=== PATIENT | female | born 1945 | race Caucasian/White ===

== ENCOUNTER 2020-06-28 17:59 | Emergency (ER) | payer MEDICARE, OTHER ==
[2020-06-28] MEDS ORDERED: Metoclopramide 10 MG/2 ML SDV IVPUSH ONE (18:35)
[2020-06-28] MEDS ORDERED: Sodium Chloride 0.9% 10 ML Syringe FLUSH PRN (18:35)
[2020-06-28] MEDS ORDERED: HYDROmorphone 0.5 MG/0.5 ML Syringe IVPUSH ONE (18:35)
[2020-06-28] MEDS ORDERED: Sodium Chloride 0.9% 1,000 ML IV ONE (18:35)
[2020-06-28] MEDS ORDERED: diphenhydrAMINE 50 MG/ML SDV IVPUSH ONE (18:36)
--- NOTE | 2020-06-28 18:49 | EDM.PDOC ---
ED HPI GENERAL MEDICAL PROBLEM - General Chief Complaint: Headache Stated Complaint: HEADACHE/BLURRED VISION/L SIDE NUMBNESS Time Seen by Provider: 06/28/20 18:25 Source of Information: Reports: Patient, RN Notes Reviewed History Limitations: Reports: No Limitations - History of Present Illness INITIAL COMMENTS - FREE TEXT/NARRATIVE: Patient is a 75-year-old female who presents to the ED for evaluation of a severe headache. Patient states she got her COVID-19 vaccine, the first dose on June 17.. She has been having a frontal headache, into the left side of her head, and into the back of her head since yesterday. She has been using 600 mg of Motrin as needed, her last dose was around 4:30 PM today. She is complaining of some left eye blurry vision, and that the left side of her face feels somewhat numb or tingly. She has no neuro deficits apparent. She is moving all limbs equally and bilaterally. She is also complaining of some chest tightness, like she was wearing her bra, but in fact she is not wearing a bra. She does not take any sort of aspirin. Patient states she does have some pressure in her head and her ears hurt as well. She is not been around anyone has been sick, and has not taken any unnecessary outings after getting her first Covid vaccine. She denies any fevers or chills, cough or shortness of breath, vomiting or diarrhea. She felt a little bit nauseous earlier today when the pain was quite bad. She also notes that the pain is around a 10 out of 10. She further denies any urinary issues. Primary care provider is Sarahy Zhong. Other Treatments O[employer]ER BLASTING: motrin Headache Pain Score (Numeric/FACES): 10 - Related Data Allergies Allergy/AdvReac Type Severity Reaction Status Date / Time No Known Allergies Allergy Verified 06/28/20 18:16 Home Meds: Home Meds Cefdinir [Omnicef] 300 mg PO BID 10 Days #20 cap 06/28/20 [Rx] Gabapentin [Neurontin] 100 mg PO DAILY 06/28/20 [History] Levothyroxine [Synthroid] 50 mcg PO DAILY 06/28/20 [History] Simvastatin 20 mg PO BEDTIME 06/28/20 [History] amLODIPine [Norvasc] 5 mg PO DAILY 06/28/20 [History] lisinopriL [Lisinopril] 20 mg PO DAILY 06/28/20 [History] metFORMIN [Glucophage XR] 500 mg PO BEDTIME 06/28/20 [History] Past Medical History Cardiovascular History: Reports: Hypertension Musculoskeletal History: Reports: Arthritis Neurological History: Reports: Migraines Endocrine/Metabolic History: Reports: Diabetes, Type II, Hypothyroidism Social & Family History - Tobacco Use Tobacco Use Status *Q: Never Tobacco User - Caffeine Use Caffeine Use: Reports: Coffee - Recreational Drug Use Recreational Drug Use: No ED ROS GENERAL - Review of Systems Review Of Systems: Comprehensive ROS is negative, except as noted in HPI. - Physical Exam Exam: See Below Exam Limited By: No Limitations General Appearance: Alert, WD/WN, No Apparent Distress Eye Exam: Bilateral Eye: EOMI, Normal Inspection, PERRL Head Exam: Atraumatic, Normocephalic Neck: Normal Inspection Respiratory/Chest: No Respiratory Distress, Lungs Clear, Normal Breath Sounds, No Accessory Muscle Use, Chest Non-Tender Cardiovascular: Normal Peripheral Pulses, Regular Rate, Rhythm, No Edema GI/Abdominal: Normal Bowel Sounds, Soft, Non-Tender, No Distention, No Mass Neuro Exam (Abbreviated): Alert, Oriented, Normal Cognition, No Motor/Sensory Deficits Extremities: Normal Inspection, Normal Capillary Refill Psychiatric: Normal Affect, Normal Mood Skin Exam: Warm, Dry, Intact, Normal Color, No Rash #1 Interpretation EKG Date: 06/28/20 Time: 18:42 Rhythm: NSR Rate (Beats/Min): 75 [place]: Normal P-Wave: Present QRS: Normal ST-T: Normal QT: Normal Comparison: NA - No Prior EKG EKG Interpretation Comments: No obvious ischemia or acute ST changes noted, reviewed by myself and Dr. Wilkinson. Course - Vital Signs Last Recorded V/S: Last Vital Signs Temp 99.8 F 06/28/20 18:21 Pulse 81 06/28/20 18:21 Resp 20 06/28/20 18:21 BP 171/63 H 06/28/20 18:21 Pulse Ox 100 06/28/20 18:21 - Orders/Labs/Meds Orders: Active Orders 24 hr Category Date Time Status EKG 12 Lead [EKG Documentation Completion] [RC] STAT Care 06/28/20 18:30 Active Peripheral IV Care [RC] . DIRECTED Care 06/28/20 18:35 Ordered Chest 1V Frontal [CR] Stat Exams 06/28/20 18:34 Ordered Head wo Cont [CT] Stat Exams 06/28/20 18:32 Ordered CULTURE URINE [RM] Routine Lab 06/28/20 20:37 Ordered Sodium Chloride 0.9% [Saline Flush] Med 06/28/20 18:35 Ordered 10 ml FLUSH ASDIRECTED PRN Peripheral IV Insertion Adult [OM.PC] Routine Oth 06/28/20 18:34 Ordered Medication Orders Sodium Chloride (Saline Flush) 10 ml FLUSH ASDIRECTED PRN PRN Reason: Keep Vein Open Last Admin: 06/28/20 19:16 Dose: 10 ml Documented by: PEARL Labs: Laboratory Tests 06/28/20 06/28/20 06/28/20 Range/Units 19:10 19:10 19:23 WBC 8.22 (3.98-10.04) K/mm3 RBC 3.92 L (3.98-5.22) M/mm3 Hgb 10.9 L (11.2-15.7) gm/dl Hct 34.2 (34.1-44.9) % MCV 87.2 (79.4-94.8) fl MCH 27.8 (25.6-32.2) pg MCHC 31.9 L (32.2-35.5) g/dl RDW Std Deviation 41.5 (36.4-46.3) fL Plt Count 256 (182-369) K/mm3 MPV 10.7 (9.4-12.3) fl Neutrophils % (Manual) 75 H (40-60) % Band Neutrophils % 0 (0-10) % Lymphocytes % (Manual) 16 L (20-40) % Atypical Lymphs % 0 % Monocytes % (Manual) 6 (2-10) % Eosinophils % (Manual) 2 (0.7-5.8) % Basophils % (Manual) 1 (0.1-1.2) Platelet Estimate Adequate RBC Morph Comment Normal Sodium 138 (136-145) mEq/L Potassium 4.3 (3.5-5.1) mEq/L Chloride 103 (98-107) mEq/L Carbon Dioxide 26 (21-32) mEq/L Anion Gap 13.3 (5-15) BUN 15 (7-18) mg/dL Creatinine 1.1 H (0.55-1.02) mg/dL Est Cr Clr Drug Dosing 37.57 mL/min Estimated GFR (MDRD) 48 (>60) mL/min BUN/Creatinine Ratio 13.6 L (14-18) Glucose 113 (83-115) mg/dL Calcium 9.2 (8.5-10.1) mg/dL Magnesium 2.1 (1.8-2.4) mg/dl Total Bilirubin 0.4 (0.2-1.0) mg/dL AST 17 (15-37) U/L ALT 18 (14-59) U/L Alkaline Phosphatase 75 (46-116) U/L Troponin I < 0.017 (0.00-0.056) ng/mL Total Protein 7.2 (6.4-8.2) g/dl Albumin 3.9 (3.4-5.0) g/dl Globulin 3.3 gm/dL Albumin/Globulin Ratio 1.2 (1-2) Urine Color (Yellow) Urine Appearance (Clear) Urine pH (5.0-8.0) Ur Specific [place] (1.005-1.030) Urine Protein (Negative) Urine Glucose (UA) (Negative) Urine Ketones (Negative) Urine Occult Blood (Negative) Urine Nitrite (Negative) Urine Bilirubin (Negative) Urine Urobilinogen (0.2-1.0) Ur Leukocyte Esterase (Negative) Urine RBC (0-5) /hpf Urine WBC (0-5) /hpf Ur Squamous Epith Cells (0-5) /hpf Urine Bacteria (FEW) /hpf Urine Mucus (FEW) /hpf Influenza Type A RNA Negative (NEGATIVE) Influenza Type B RNA Negative (NEGATIVE) SARS-CoV-2 RNA (KASEY) Negative (NEGATIVE) 06/28/20 Range/Units 20:20 WBC (3.98-10.04) K/mm3 RBC (3.98-5.22) M/mm3 Hgb (11.2-15.7) gm/dl Hct (34.1-44.9) % MCV (79.4-94.8) fl MCH (25.6-32.2) pg MCHC (32.2-35.5) g/dl RDW Std Deviation (36.4-46.3) fL Plt Count (182-369) K/mm3 MPV (9.4-12.3) fl Neutrophils % (Manual) (40-60) % Band Neutrophils % (0-10) % Lymphocytes % (Manual) (20-40) % Atypical Lymphs % % Monocytes % (Manual) (2-10) % Eosinophils % (Manual) (0.7-5.8) % Basophils % (Manual) (0.1-1.2) Platelet Estimate RBC Morph Comment Sodium (136-145) mEq/L Potassium (3.5-5.1) mEq/L Chloride (98-107) mEq/L Carbon Dioxide (21-32) mEq/L Anion Gap (5-15) BUN (7-18) mg/dL Creatinine (0.55-1.02) mg/dL Est Cr Clr Drug Dosing mL/min Estimated GFR (MDRD) (>60) mL/min BUN/Creatinine Ratio (14-18) Glucose (83-115) mg/dL Calcium (8.5-10.1) mg/dL Magnesium (1.8-2.4) mg/dl Total Bilirubin (0.2-1.0) mg/dL AST (15-37) U/L ALT (14-59) U/L Alkaline Phosphatase (46-116) U/L Troponin I (0.00-0.056) ng/mL Total Protein (6.4-8.2) g/dl Albumin (3.4-5.0) g/dl Globulin gm/dL Albumin/Globulin Ratio (1-2) Urine Color Light yellow (Yellow) Urine Appearance Clear (Clear) Urine pH 6.0 (5.0-8.0) Ur Specific [place] 1.020 (1.005-1.030) Urine Protein Negative (Negative) Urine Glucose (UA) Negative (Negative) Urine Ketones Negative (Negative) Urine Occult Blood Negative (Negative) Urine Nitrite Negative (Negative) Urine Bilirubin Negative (Negative) Urine Urobilinogen 0.2 (0.2-1.0) Ur Leukocyte Esterase 1+ H (Negative) Urine RBC Not seen (0-5) /hpf Urine WBC 10-20 H (0-5) /hpf Ur Squamous Epith Cells 5-10 H (0-5) /hpf Urine Bacteria Rare (FEW) /hpf Urine Mucus Not seen (FEW) /hpf Influenza Type A RNA (NEGATIVE) Influenza Type B RNA (NEGATIVE) SARS-CoV-2 RNA (KASEY) (NEGATIVE) Meds: Medications Generic Name Dose Route Start Last Admin Trade Name Freq PRN Reason Stop Dose Admin Sodium Chloride 10 ml 06/28/20 18:35 06/28/20 19:16 Saline Flush FLUSH 10 ml ASDIRECTED PRN Administration Keep Vein Open Discontinued Medications Generic Name Dose Route Start Last Admin Trade Name Freq PRN Reason Stop Dose Admin Cefdinir 300 mg 06/28/20 20:41 06/28/20 21:02 Omnicef PO 06/28/20 20:42 300 mg ONETIME ONE Administration Diphenhydramine HCl 25 mg 06/28/20 18:36 06/28/20 19:12 Benadryl IVPUSH 06/28/20 18:37 25 mg ONETIME ONE Administration Hydromorphone HCl 0.5 mg 06/28/20 18:35 06/28/20 19:15 Dilaudid IVPUSH 06/28/20 18:36 0.5 mg ONETIME ONE Administration Sodium Chloride 1,000 mls @ 999 mls/hr 06/28/20 18:35 06/28/20 19:12 Normal Saline IV 06/28/20 19:35 999 mls/hr ONETIME ONE Administration Metoclopramide HCl 7.5 mg 06/28/20 18:35 06/28/20 19:12 Reglan IVPUSH 06/28/20 18:36 7.5 mg ONETIME ONE Administration - Re-Assessments/Exams Free Text/Narrative Re-Assessment/Exam: 06/28/20 18:46 Patient presents to the ED for evaluation of her headache. Since she is also complaining of chest pressure, extensive work-up will be done to include EKG, labs, head CT without contrast, to be given IV fluids, medications for her headache for management. 06/28/20 20:03 Patient's laboratory evaluation has returned, CBC and CMP are essentially unremarkable, she has a little bit of renal insufficiency, or is dehydrated. CT of the head did demonstrate no acute intracranial process however she has a small amount of fluid layering in the sphenoid sinus, suspicious of acute sinusitis causing the headache release being a portion of what caused the headache. 06/28/20 20:38 Urinalysis has come back, and is suspicious for UTI. Patient will already be placed on Omnicef for the possible sinusitis on the CT. Course will be for 10 days to help with the UTI as well. COVID-19 swab is still pending. 06/28/20 21:05 Covid swab is negative. Patient be discharged with the above plan. Departure - Departure Time of Disposition: 20:22 Disposition: Home, Self-Care 01 Condition: Good Clinical Impression: Acute sinus infection Qualifiers: Sinusitis location: sphenoidal Recurrence: non-recurrent Qualified Code(s): J01.30 - Acute sphenoidal sinusitis, unspecified UTI (urinary tract infection) Qualifiers: Urinary tract infection type: acute cystitis Hematuria presence: without hematuria Qualified Code(s): N30.00 - Acute cystitis without hematuria - Discharge Information *PRESCRIPTION DRUG MONITORING PROGRAM REVIEWED*: No *COPY OF PRESCRIPTION DRUG MONITORING REPORT IN PATIENT FATOUMATA: No Prescriptions: Cefdinir [Omnicef] 300 mg PO BID 10 Days #20 cap Instructions: Urinary Tract Infection, Adult, [id number], Sinus Headache, [id number] Referrals: Sarahy Zhong [facility] [Primary Care Provider] - Forms: ED Department Discharge Additional Instructions: You were evaluated in the ER today for your headache. You had a few different tests done today, CT did demonstrate that you have acute sinusitis of your sphenoidal sinus that could be the cause of your head pressure/headache. You have been treated with some IV fluids, and IV medication for your headache. And you will be given a course of antibiotics for further management of this. All of your laboratory evaluation at today's visit was within normal limits or unremarkable. Your urinalysis was suspicious for UTI, the antibiotic you were given for the sinusitis, will also help with the UTI as well. Recommend you follow-up with your regular care provider, sometime by the end of this week, for reevaluation and to make sure your symptoms are getting better as expected. Please return to the ER at any time if symptoms change or worsen. Sepsis Event Note (ED) - Evaluation Sepsis Screening Result: No Definite Risk - Focused Exam Vital Signs: Vital Signs Temp Pulse Resp BP Pulse Ox 06/28/20 18:21 99.8 F 81 20 171/63 H 100 - My Orders Last 24 Hours: My Active Orders 06/28/20 18:30 EKG 12 Lead [EKG Documentation Completion] [RC] STAT 06/28/20 18:32 Head wo Cont [CT] Stat 06/28/20 18:34 Chest 1V Frontal [CR] Stat Peripheral IV Insertion Adult [OM.PC] Routine 06/28/20 18:35 Peripheral IV Care [RC] . DIRECTED Sodium Chloride 0.9% [Saline Flush] 10 ml FLUSH ASDIRECTED PRN 06/28/20 20:37 CULTURE URINE [RM] Routine - Assessment/Plan Last 24 Hours: My Active Orders 06/28/20 18:30 EKG 12 Lead [EKG Documentation Completion] [RC] STAT 06/28/20 18:32 Head wo Cont [CT] Stat 06/28/20 18:34 Chest 1V Frontal [CR] Stat Peripheral IV Insertion Adult [OM.PC] Routine 06/28/20 18:35 Peripheral IV Care [RC] . DIRECTED Sodium Chloride 0.9% [Saline Flush] 10 ml FLUSH ASDIRECTED PRN 06/28/20 20:37 CULTURE URINE [RM] Routine
[2020-06-28] MEDS ORDERED: Cefdinir 300 MG Cap PO ONE (20:41)
[2020-06-28 20:58] LABS: CORONAVIRUS COVID-19 NAA NEGATIVE (NEGATIVE)
--- NOTE | 2020-06-29 08:42 | CT ---
Head CT Technique: Multiple axial sections through the brain were obtained. Intravenous contrast was not utilized. Comparison: Previous MRI brain of 05/01/19. Findings: Ventricles along with basal cisterns and sulci over the convexities appear within normal limits for the patient's age. Minimal basal ganglia calcification is seen on the right side. No abnormal parenchymal densities are seen. No evidence of intracranial hemorrhage. No midline shift or mass-effect is appreciated. Small fluid level is seen within the sphenoid sinus. Other visualized portions of the paranasal sinuses are clear. Mastoid sinuses that are seen appear clear. No acute calvarial abnormality is appreciated. Impression: 1. Small amount of fluid within the sphenoid sinus. Difficult to exclude acute sinusitis. Please correlate with the patient's symptoms. 2. Nothing acute is otherwise seen on noncontrast head CT study. Diagnostic code #3 I agree with preliminary report from [facility], finalized on 06/28/20, 8:16 PM [employer]
--- NOTE | 2020-06-29 09:41 | CR ---
Chest: Portable view of the chest was obtained. Comparison: Prior chest x-ray of 09/10/15. Heart size and mediastinum are normal. Lungs show no definite acute parenchymal change. Surgical clips are seen within the right axillary region. Bony structures show nothing acute. Impression: 1. Nothing acute is seen on portable chest x-ray. Diagnostic code #2
== END 2020-06-28 21:19 | disposition home or self-care (01) ==
LOC: JD.ED 17:59
DX: J01.30 Acute sphenoidal sinusitis, unspecified (principal); N30.00 Acute cystitis without hematuria; I10 Essential (primary) hypertension; E11.9 Type 2 diabetes mellitus without complications; E03.9 Hypothyroidism, unspecified; Z79.899 Other long term (current) drug therapy; Z20.822 Contact with and (suspected) exposure to COVID-19
CPT/HCPCS: 0240U; 36415; 70450; 71045; 80053; 81001; 83735; 84484; 85007; 85027; 87086; 93005; 96374; 96375; 99284; A9270; J1170; J1200; J2765; J7030; 93010

== ENCOUNTER 2024-04-08 15:55 | Emergency (ER) | payer MEDICARE ==
[2024-04-08 18:05] LABS: BASOPHILS ABSOLUTE AUTO 0.1 K/mm3 (0.0-0.2); EOSINOPHILS ABSOLUTE AUTO 0.2 K/mm3 (0.0-0.4); EOSINOPHILS PERCENT AUTO 3.3 % (0.0-6.0); HEMATOCRIT 29.6 % (37.0-47.0); HEMOGLOBIN 9.7 gm/dl (12.0-16.0); IMMATURE GRAN ABSOLUTE AUTO 0.02 K/mm3 (0.00-0.05); IMMATURE GRAN PERCENT AUTO 0.3 % (0.0-0.4); LYMPHOCYTES ABSOLUTE AUTO 1.4 K/mm3 (1.0-4.8); LYMPHOCYTES PERCENT AUTO 21.4 % (24.0-44.0); MEAN CORPUSCULAR HEMOGLOBIN 29.3 pg (28.0-32.0); MEAN CORPUSCULAR HGB CONC 32.8 g/dl (32.0-36.0); MEAN CORPUSCULAR VOLUME 89.4 fl (83.0-99.0); MEAN PLATELET VOLUME 9.8 fl (9.4-12.3); MONOCYTES ABSOLUTE AUTO 0.6 K/mm3 (0.0-0.8); MONOCYTES PERCENT AUTO 9.7 % (0.0-8.0); NEUTROPHILS ABSOLUTE AUTO 4.1 K/mm3 (1.8-7.7); NEUTROPHILS PERCENT AUTO 64.3 % (41.0-71.0); PLATELET COUNT,PLT 281 K/mm3 (150-400); RED BLOOD CELL COUNT 3.31 M/mm3 (4.10-5.30)
[2024-04-08 18:26] LABS: A/G RATIO 1.1 (1-2); ALBUMIN 3.6 g/dl (3.4-5.0); ANION GAP 16.1 (5-15); BILIRUBIN TOTAL 0.2 mg/dL (0.2-1.0); BUN/CREATININE RATIO 16.7 (14-18); CREATININE 0.9 mg/dL (0.55-1.02); EST CRCL DRUG DOSING (CG) 41.24 mL/min; MAGNESIUM 1.7 mg/dL (1.8-2.4); POTASSIUM,K 4.1 mEq/L (3.5-5.1); PROTEIN TOTAL,TP 6.8 g/dl (6.4-8.2)
[2024-04-08] MEDS: Magnesium Oxide 400 MG Tab PO ONE (19:21)
== END 2024-04-08 19:25 | disposition home or self-care (01) ==
LOC: JD.ED 15:55
DX: R20.2 Paresthesia of skin (principal); G62.9 Polyneuropathy, unspecified; E83.42 Hypomagnesemia; D64.9 Anemia, unspecified; I10 Essential (primary) hypertension; E11.9 Type 2 diabetes mellitus without complications; E03.9 Hypothyroidism, unspecified; Z79.84 Long term (current) use of oral hypoglycemic drugs; Z79.899 Other long term (current) drug therapy
CPT/HCPCS: 36415; 80053; 83735; 85025; 93971-26-LT; 93971-LT; 99284; A9270-GY